=== PATIENT | female | born 1955 | race Caucasian/White ===

== ENCOUNTER 2018-04-16 11:39 | Day surgery (SDC) | payer OTHER ==
[~2018-04-16] VITALS: Ht 175.3 cm; Wt 83.7 kg
[~2018-04-16 11:39] MED LIST: ASPI81CH PO; CALCAVITDA PO; FISH1000 PO; METO10 PO; METR70GEL VAG; MULVITMINF PO; NIAC500ER PO; Prilosec Otc20 MG; SIMV40; SIMV40 PO; VALA500 PO; Zofran Odt4 MG SL
[2018-04-16] MEDS ORDERED: FAMO40 PO (12:15)
[2018-04-16] MEDS ORDERED: UBID10 PO (12:16)
[2018-04-16] MEDS ORDERED: DESV50 PO (12:16)
[2018-04-16] MEDS ORDERED: FISH OIL 500 M1 EAC1 PO (12:17)
[2018-04-16] MEDS ORDERED: ASPI81CH PO (12:17)
[2018-04-16] MEDS ORDERED: CHOL10002 PO (12:18)
== END 2018-04-16 15:20 | disposition home or self-care (01) ==
LOC: ORSCSDS 11:39
PROVIDERS: Surgery
PROC: 0WUF0JZ Supplement Abdominal Wall with Synthetic Substitute, Open Approach (ICD-10-PCS; principal; 2018-04-16 13:00)
DX: K43.9 Ventral hernia without obstruction or gangrene (principal); F41.8 Other specified anxiety disorders; E78.5 Hyperlipidemia, unspecified; Z79.899 Other long term (current) drug therapy
CPT/HCPCS: C1781; J0690; J1100; J2250; J2405; J3010; J7120

== ENCOUNTER 2019-06-12 12:19 | Day surgery (SDC) | payer OTHER ==
[~2019-06-12] VITALS: Ht 175.3 cm; Wt 85.2 kg
[~2019-06-12 12:19] MED LIST changes: +CHOL10002 PO; +DESV50 PO; +FAMO40 PO; +FISH OIL 500 M1 EAC1 PO; +UBID10 PO
== END 2019-06-12 14:06 | disposition home or self-care (01) ==
LOC: ORSCSDS 12:19
PROVIDERS: Internal Medicine Gastroenterology
PROC: 0DB58ZX Excision of Esophagus, Via Natural or Artificial Opening Endoscopic, Diagnostic (ICD-10-PCS; principal; 2019-06-12 13:30)
DX: K22.70 Barrett's esophagus without dysplasia (principal); K44.9 Diaphragmatic hernia without obstruction or gangrene; K29.60 Other gastritis without bleeding; Z79.82 Long term (current) use of aspirin; Z79.899 Other long term (current) drug therapy
CPT/HCPCS: 87081; 88305; J2704; J7120

== ENCOUNTER 2022-08-08 12:14 | Day surgery (SDC) | payer MEDICARE ==
[~2022-08-08] VITALS: Ht 175.3 cm; Wt 80.0 kg
[2022-08-08] MEDS ORDERED: ROSU5 (12:51)
--- NOTE | 2022-08-08 14:30 | NUR ---
08/08/22 1430 ZURI NIELSEN IV DCD POST PROCEDURE IN OR.
== END 2022-08-08 14:28 | disposition home or self-care (01) ==
LOC: ORSCSDS 12:14
PROVIDERS: Internal Medicine Gastroenterology
PROC: 0DB58ZX Excision of Esophagus, Via Natural or Artificial Opening Endoscopic, Diagnostic (ICD-10-PCS; principal; 2022-08-08 13:30)
PROC: 0DB78ZX Excision of Stomach, Pylorus, Via Natural or Artificial Opening Endoscopic, Diagnostic (ICD-10-PCS; principal; 2022-08-08 13:30)
DX: K22.70 Barrett's esophagus without dysplasia (principal); K21.00 Gastro-esophageal reflux disease with esophagitis, without bleeding; K29.70 Gastritis, unspecified, without bleeding; E11.9 Type 2 diabetes mellitus without complications; Z79.899 Other long term (current) drug therapy
CPT/HCPCS: 82947; 88305; 88342; J0461; J2405; J2704; J7120; Q9968